=== PATIENT | female | born 1995 | race Caucasian/White ===

== ENCOUNTER → 2019-04-28 | Outpatient (CLI) | payer OTHER ==
[~2019-04-28] MED LIST: LO LOESTRIN FE1 TAB PO; ULTRAM 50MG TAB50 MG PO; ZOFRAN8 MG PO; ZYRTEC 10MG10 MG PO
== END ==
LOC: COL.RAD 04-07 08:15
DX: R51 Headache (principal)
CPT/HCPCS: A9585